=== PATIENT | male | born 1940 | race Caucasian/White ===

== ENCOUNTER 2023-05-07 18:42 | Inpatient (IN) | payer OTHER ==
[~2023-05-07] VITALS: Ht 180.3 cm; Wt 64.0 kg
[2023-05-07 19:25] VITALS: BP_SYST 99; PULSE 77; RESP 18; TEMP 97.5; O2SAT 95
[2023-05-07 20:52] LABS: BASOPHILS % (AUTO) 0.1 % (0.0-2.0); HEMATOCRIT 43.5 % (36-54); HEMOGLOBIN 14.5 g/dL (14.0-18.0); LYMPHOCYTES # (AUTO) 0.5 K/uL (1.0-5.5); LYMPHOCYTES % (AUTO) 6.4 % (20.5-51.5); MEAN CORPUSCULAR HEMOGLOBIN 29 pg (27-31); MEAN CORPUSCULAR HGB CONC 33 % (32-36); MEAN CORPUSCULAR VOLUME 86 fL (79.0-98.0); MONOCYTES # (AUTO) 0.8 K/uL (0.0-1.0); MONOCYTES % (AUTO) 9.8 % (1.7-9.3); NEUTROPHILS % (AUTO) 83.7 % (40.0-70.0); PLATELET COUNT (AUTO) 145 K/uL (130-430); RED BLOOD CELL COUNT(AUTO) 5.03 MIL/uL (4.2-6.2); RED CELL DISTRIBUTION WIDTH 14.4 % (9.0-15.0); WHITE BLOOD COUNT (AUTO) 8.4 K/uL (4.8-10.8)
[2023-05-07 21:08] LABS: ANION GAP 7 (5-15); CALCIUM 8.4 mg/dL (8.4-11.0); CARBON DIOXIDE 29 mmol/L (23-29); CHLORIDE 100 mmol/L (98-107); CREATININE 1.04 mg/dL (0.55-1.30); GLUCOSE 116 mg/dL (74-106); POTASSIUM 3.7 mmol/L (3.5-5.1); SODIUM SERUM 136 mmol/L (136-145); UREA NITROGEN, BLOOD 23 mg/dL (8-21)
[2023-05-07] MEDS ORDERED: ASPIRIN 81 MG TAB.CHEW PO ONE (21:45)
[2023-05-07] MEDS ORDERED: NITROGLYCERIN 1 INCH (GM) OINT. TP ONE (21:45)
[2023-05-07 22:01] LABS: BILIRUBIN,URINE 1+ (NEGATIVE); BLOOD, URINE 2+ (NEGATIVE); CLARITY/URINE SL CLOUDY (CLEAR); COLOR,URINE YELLOW (YELLOW); GLUCOSE,URINE NEGATIVE (NEGATIVE); KETONES,URINE TRACE (NEGATIVE); LEUKOCYTE ESTERASE ,URINE NEGATIVE (NEGATIVE); NITRITE, URINE NEGATIVE (NEGATIVE); PH,URINE 5.5 (5.0-8.0); PROTEIN URINE 2+ (NEGATIVE)
[2023-05-07 22:14] LABS: BACTERIA,URINE RARE /HPF (None Seen); MUCUS,URINE None Seen /LPF (None Seen); WBC,URINE 0-3 /HPF (0-3)
[2023-05-07] MEDS ORDERED: ATOR10TA68 PO (22:15)
[2023-05-07] MEDS ORDERED: DONE5TAB33 PO (22:15)
[2023-05-08 00:45] VITALS: BP_SYST 122; PULSE 63; RESP 18; TEMP 97.2
[2023-05-08 08:00] VITALS: BP_SYST 126; PULSE 64; RESP 20; TEMP 98.1; O2SAT 96
[2023-05-08] MEDS ORDERED: NALOXONE HCL 0.4 MG/ML AMP (NARCAN) IVP PRN ×2 (09:45)
[2023-05-08] MEDS ORDERED: HYDROcodone/ACETAMIN 5-325 MG TAB (NORCO/ VICODIN) PO PRN (09:45)
[2023-05-08] MEDS ORDERED: LORazepam 2 MG/ML VIAL IVP PRN (09:45)
[2023-05-08] MEDS ORDERED: ONDANSETRON HCL 4 MG/2 ML VIAL IVP PRN (09:45)
[2023-05-08] MEDS ORDERED: HYDROcodone/ACETAMIN 10-325 MG TAB PO PRN (09:45)
[2023-05-08] MEDS ORDERED: ACETAMINOPHEN 325 MG TABLET PO PRN (10:15)
[2023-05-08 11:59] VITALS: BP_SYST 109; PULSE 70; RESP 16; TEMP 97; O2SAT 95
[2023-05-08] MEDS: cefTRIAXone 1 GM IVPB PREMIX 50 ML IV SCH (13:30)
[2023-05-08] MEDS: NORMAL SALINE 5 ML DISP.SYRIN IVF SCH ×2 (13:59→20:48)
[2023-05-08 18:38] VITALS: BP_SYST 102; PULSE 64; RESP 14; TEMP 97.2; O2SAT 95
[2023-05-08 19:42] VITALS: BP_SYST 112; PULSE 94; RESP 18; TEMP 97.2; O2SAT 94
[2023-05-08] MEDS: DONEPEZIL HCL 5 MG TABLET (ARICEPT) PO SCH (20:48)
[2023-05-08] MEDS ORDERED: ATORVASTATIN 10 MG TABLET PO SCH (21:00)
[2023-05-09 00:52] VITALS: BP_SYST 119; PULSE 62; RESP 17; TEMP 97.5; O2SAT 96
[2023-05-09] MEDS: NORMAL SALINE 5 ML DISP.SYRIN IVF SCH ×3 (05:02→20:56)
[2023-05-09 07:43] LABS: BASOPHILS % (AUTO) 0.2 % (0.0-2.0); HEMATOCRIT 42.5 % (36-54); HEMOGLOBIN 14.1 g/dL (14.0-18.0); LYMPHOCYTES # (AUTO) 0.5 K/uL (1.0-5.5); LYMPHOCYTES % (AUTO) 8.6 % (20.5-51.5); MEAN CORPUSCULAR HEMOGLOBIN 28 pg (27-31); MEAN CORPUSCULAR HGB CONC 33 % (32-36); MEAN CORPUSCULAR VOLUME 86 fL (79.0-98.0); MONOCYTES # (AUTO) 0.4 K/uL (0.0-1.0); MONOCYTES % (AUTO) 6.6 % (1.7-9.3); NEUTROPHILS # (AUTO) 4.9 K/uL (1.8-7.7); NEUTROPHILS % (AUTO) 84.6 % (40.0-70.0); PLATELET COUNT (AUTO) 145 K/uL (130-430); RED BLOOD CELL COUNT(AUTO) 4.95 MIL/uL (4.2-6.2); RED CELL DISTRIBUTION WIDTH 14.5 % (9.0-15.0); WHITE BLOOD COUNT (AUTO) 5.8 K/uL (4.8-10.8)
[2023-05-09 07:44] VITALS: BP_SYST 118; PULSE 74; RESP 18; TEMP 98.5; O2SAT 92
[2023-05-09 07:55] LABS: ANION GAP 9 (5-15); CALCIUM 8.2 mg/dL (8.4-11.0); CARBON DIOXIDE 24 mmol/L (23-29); CHLORIDE 102 mmol/L (98-107); CREATININE 0.84 mg/dL (0.55-1.30); GLUCOSE 101 mg/dL (74-106); POTASSIUM 3.2 mmol/L (3.5-5.1); SODIUM SERUM 135 mmol/L (136-145); UREA NITROGEN, BLOOD 22 mg/dL (8-21)
[2023-05-09 12:15] VITALS: BP_SYST 104; PULSE 72; RESP 18; TEMP 98; O2SAT 94
[2023-05-09] MEDS: cefTRIAXone 1 GM IVPB PREMIX 50 ML IV SCH (13:27)
[2023-05-09 16:33] VITALS: BP_SYST 132; PULSE 72; RESP 24; TEMP 97.5; O2SAT 95
[2023-05-09 19:30] VITALS: BP_SYST 128; PULSE 86; RESP 18; TEMP 96.9; O2SAT 96
[2023-05-09] MEDS: ATORVASTATIN 10 MG TABLET PO SCH (20:55)
[2023-05-09] MEDS: DONEPEZIL HCL 5 MG TABLET (ARICEPT) PO SCH (20:55)
[2023-05-09] MEDS ORDERED: traZODone HCL 50 MG TABLET (DESYREL) PO SCH (21:00)
[2023-05-10 00:34] VITALS: BP_SYST 133; PULSE 80; RESP 16; TEMP 97.9; O2SAT 95
[2023-05-10] MEDS: NORMAL SALINE 5 ML DISP.SYRIN IVF SCH ×3 (05:48→21:11)
[2023-05-10 07:35] LABS: BASOPHILS % (AUTO) 0.1 % (0.0-2.0); HEMATOCRIT 45.6 % (36-54); HEMOGLOBIN 15.3 g/dL (14.0-18.0); LYMPHOCYTES # (AUTO) 0.4 K/uL (1.0-5.5); LYMPHOCYTES % (AUTO) 9.4 % (20.5-51.5); MEAN CORPUSCULAR HEMOGLOBIN 29 pg (27-31); MEAN CORPUSCULAR HGB CONC 33 % (32-36); MEAN CORPUSCULAR VOLUME 86 fL (79.0-98.0); MONOCYTES # (AUTO) 0.4 K/uL (0.0-1.0); MONOCYTES % (AUTO) 10.9 % (1.7-9.3); NEUTROPHILS # (AUTO) 3.2 K/uL (1.8-7.7); NEUTROPHILS % (AUTO) 79.6 % (40.0-70.0); PLATELET COUNT (AUTO) 134 K/uL (130-430); RED BLOOD CELL COUNT(AUTO) 5.28 MIL/uL (4.2-6.2)
[2023-05-10 07:44] LABS: ERYTHROCYTE SEDIMENTATION RATE 35 MM/HR (0-15)
[2023-05-10 08:00] VITALS: BP_SYST 106; PULSE 69; RESP 15; TEMP 97.3; O2SAT 93
[2023-05-10 08:02] LABS: ALANINE AMINOTRANSFERASE 19 U/L (12-78); ANION GAP 8 (5-15); ASPARTATE AMINOTRANSFERASE 42 U/L (10-37); CALCIUM 8.3 mg/dL (8.4-11.0); CARBON DIOXIDE 26 mmol/L (23-29); CHLORIDE 100 mmol/L (98-107); CREATININE 0.85 mg/dL (0.55-1.30); GLUCOSE 103 mg/dL (74-106); POTASSIUM 3.1 mmol/L (3.5-5.1); SODIUM SERUM 134 mmol/L (136-145); TOTAL BILIRUBIN 0.4 mg/dL (0.0-1.0); TOTAL PROTEIN, SERUM 7.2 g/dL (6.4-8.3); UREA NITROGEN, BLOOD 22 mg/dL (8-21)
[2023-05-10 10:29] VITALS: O2SAT 94
[2023-05-10 12:00] VITALS: BP_SYST 134; PULSE 73; RESP 15; TEMP 97.3; O2SAT 95
[2023-05-10] MEDS ORDERED: POTASSIUM CHLORIDE 20 MEQ TAB.PRT.SR PO ONE (13:30)
[2023-05-10] MEDS: cefTRIAXone 1 GM IVPB PREMIX 50 ML IV SCH (13:37)
[2023-05-10 16:00] VITALS: BP_SYST 124; PULSE 72; RESP 14; TEMP 97; O2SAT 94
[2023-05-10 20:00] VITALS: BP_SYST 117; PULSE 66; RESP 15; TEMP 97.6; O2SAT 96; O2SAT 97
[2023-05-10] MEDS ORDERED: traZODone HCL 50 MG TABLET (DESYREL) PO PRN (21:00)
[2023-05-10] MEDS ORDERED: traZODone HCL 50 MG TABLET (DESYREL) PO SCH (21:00)
[2023-05-10] MEDS: DONEPEZIL HCL 5 MG TABLET (ARICEPT) PO SCH (21:10)
[2023-05-10] MEDS: ATORVASTATIN 10 MG TABLET PO SCH (21:11)
[2023-05-11] VITALS: BP_SYST 128; PULSE 68; RESP 18; TEMP 97.3; O2SAT 98
[2023-05-11 05:38] LABS: BASOPHILS % (AUTO) 0.1 % (0.0-2.0); HEMATOCRIT 43.8 % (36-54); LYMPHOCYTES # (AUTO) 0.4 K/uL (1.0-5.5); LYMPHOCYTES % (AUTO) 5.8 % (20.5-51.5); MEAN CORPUSCULAR HEMOGLOBIN 29 pg (27-31); MEAN CORPUSCULAR HGB CONC 34 % (32-36); MEAN CORPUSCULAR VOLUME 85 fL (79.0-98.0); MONOCYTES # (AUTO) 0.5 K/uL (0.0-1.0); MONOCYTES % (AUTO) 7.9 % (1.7-9.3); NEUTROPHILS # (AUTO) 5.4 K/uL (1.8-7.7); NEUTROPHILS % (AUTO) 86.2 % (40.0-70.0); PLATELET COUNT (AUTO) 138 K/uL (130-430); RED BLOOD CELL COUNT(AUTO) 5.15 MIL/uL (4.2-6.2); RED CELL DISTRIBUTION WIDTH 14.4 % (9.0-15.0); WHITE BLOOD COUNT (AUTO) 6.2 K/uL (4.8-10.8)
[2023-05-11 05:46] LABS: ALANINE AMINOTRANSFERASE 19 U/L (12-78); ALBUMIN 2.6 g/dL (3.4-4.8); ANION GAP 9 (5-15); ASPARTATE AMINOTRANSFERASE 34 U/L (10-37); CALCIUM 7.9 mg/dL (8.4-11.0); CARBON DIOXIDE 26 mmol/L (23-29); CHLORIDE 101 mmol/L (98-107); GLUCOSE 120 mg/dL (74-106); PHOSPHORUS 2.6 mg/dL (2.7-4.5); POTASSIUM 3.5 mmol/L (3.5-5.1); SODIUM SERUM 136 mmol/L (136-145); TOTAL BILIRUBIN 0.4 mg/dL (0.0-1.0); TOTAL PROTEIN, SERUM 6.7 g/dL (6.4-8.3); UREA NITROGEN, BLOOD 20 mg/dL (8-21)
[2023-05-11] MEDS: NORMAL SALINE 5 ML DISP.SYRIN IVF SCH ×3 (05:52→23:11)
[2023-05-11 06:00] LABS: ERYTHROCYTE SEDIMENTATION RATE 36 MM/HR (0-15)
[2023-05-11 08:00] VITALS: O2SAT 95
[2023-05-11] MEDS: ACETAMINOPHEN 325 MG TABLET PO PRN ×3 (10:11→11:55)
[2023-05-11 12:31] VITALS: BP_SYST 121; PULSE 78; RESP 16; TEMP 98.4; O2SAT 93
[2023-05-11] MEDS: cefTRIAXone 1 GM IVPB PREMIX 50 ML IV SCH (12:34)
[2023-05-11] MEDS ORDERED: IPRATROPIUM/ALBUTEROL SULFATE 3 ML AMPUL.NEB (DUONEB) INH PRN (12:45)
[2023-05-11 13:05] VITALS: PULSE 79; O2SAT 89
[2023-05-11 13:13] LABS: ABG O2 SAT% ESTIMATE 92.7 % (94.0-100.0); BLOOD GAS BASE EXCESS 0.4 mmol/L (-3.0-3.0); BLOOD GAS HCO3 22.3 mmol/L (21.0-27.0); BLOOD GAS PCO2 29.1 mmHg (32.0-45.0)
[2023-05-11 13:14] LABS: BLOOD GAS PH 7.502 (7.350-7.450); BLOOD GAS PO2 57.8 mmHg (75.0-100.0)
[2023-05-11 13:15] LABS: ALLEN'S TEST POSITIVE (P)
[2023-05-11 16:24] VITALS: BP_SYST 124; PULSE 73; RESP 16; TEMP 98; O2SAT 93
[2023-05-11 20:00] VITALS: BP_SYST 111; PULSE 85; RESP 18; TEMP 98.1; O2SAT 95; O2SAT 98
[2023-05-11] MEDS: DONEPEZIL HCL 5 MG TABLET (ARICEPT) PO SCH (20:22)
[2023-05-11] MEDS: ATORVASTATIN 10 MG TABLET PO SCH (20:22)
[2023-05-11] MEDS: PIPERACILLIN/TAZO 3.375/DEX-IS 50 ML IV SCH (23:12)
[2023-05-12] VITALS (8 sets, daily range): BP systolic 102–127; PULSE 72–88; RESP 16–19; TEMP 97.5–99.4; O2SAT 91–95
[2023-05-12 05:52] LABS: BASOPHILS % (AUTO) 0.2 % (0.0-2.0); HEMATOCRIT 45.6 % (36-54); HEMOGLOBIN 15.2 g/dL (14.0-18.0); LYMPHOCYTES # (AUTO) 0.5 K/uL (1.0-5.5); LYMPHOCYTES % (AUTO) 6.3 % (20.5-51.5); MEAN CORPUSCULAR HEMOGLOBIN 29 pg (27-31); MEAN CORPUSCULAR HGB CONC 33 % (32-36); MEAN CORPUSCULAR VOLUME 86 fL (79.0-98.0); MONOCYTES # (AUTO) 0.5 K/uL (0.0-1.0); NEUTROPHILS # (AUTO) 6.4 K/uL (1.8-7.7); NEUTROPHILS % (AUTO) 86.5 % (40.0-70.0); PLATELET COUNT (AUTO) 142 K/uL (130-430); RED BLOOD CELL COUNT(AUTO) 5.33 MIL/uL (4.2-6.2); RED CELL DISTRIBUTION WIDTH 14.2 % (9.0-15.0); WHITE BLOOD COUNT (AUTO) 7.4 K/uL (4.8-10.8)
[2023-05-12 06:02] LABS: ANION GAP 9 (5-15); CALCIUM 8.1 mg/dL (8.4-11.0); CARBON DIOXIDE 28 mmol/L (23-29); CHLORIDE 100 mmol/L (98-107); CREATININE 0.83 mg/dL (0.55-1.30); GLUCOSE 120 mg/dL (74-106); POTASSIUM 3.6 mmol/L (3.5-5.1); SODIUM SERUM 137 mmol/L (136-145); UREA NITROGEN, BLOOD 20 mg/dL (8-21)
[2023-05-12] MEDS: NORMAL SALINE 5 ML DISP.SYRIN IVF SCH ×2 (06:03→22:11)
[2023-05-12] MEDS: PIPERACILLIN/TAZO 3.375/DEX-IS 50 ML IV SCH ×3 (06:03→22:10)
[2023-05-12] MEDS: IPRATROPIUM/ALBUTEROL SULFATE 3 ML AMPUL.NEB (DUONEB) INH SCH ×3 (15:27→23:03)
[2023-05-12] MEDS: DONEPEZIL HCL 5 MG TABLET (ARICEPT) PO SCH (22:17)
[2023-05-12] MEDS: ATORVASTATIN 10 MG TABLET PO SCH (22:17)
[2023-05-13] VITALS (10 sets, daily range): BP systolic 95–106; PULSE 72–80; RESP 16–20; TEMP 96.7–97.6; O2SAT 94–97
[2023-05-13] MEDS: IPRATROPIUM/ALBUTEROL SULFATE 3 ML AMPUL.NEB (DUONEB) INH SCH ×4 (02:18→15:30)
[2023-05-13] MEDS: NORMAL SALINE 5 ML DISP.SYRIN IVF SCH ×2 (06:16→14:00)
[2023-05-13] MEDS: PIPERACILLIN/TAZO 3.375/DEX-IS 50 ML IV SCH ×2 (06:16→12:48)
[2023-05-13 06:20] LABS: ANION GAP 9 (5-15); CALCIUM 7.9 mg/dL (8.4-11.0); CARBON DIOXIDE 29 mmol/L (23-29); CHLORIDE 102 mmol/L (98-107); GLUCOSE 144 mg/dL (74-106); SODIUM SERUM 140 mmol/L (136-145); UREA NITROGEN, BLOOD 28 mg/dL (8-21)
[2023-05-13] MEDS ORDERED: POTASSIUM CHLORIDE 20 MEQ/PKT PACKET PO ONE ×2 (10:45→14:45)
[2023-05-13] MEDS ORDERED: PIPE3.379 IV (11:05)
[2023-05-13] MEDS ORDERED: BISACODYL 10 MG/SUPPOSITORY RC ONE (16:45)
== END 2023-05-13 19:40 | DRG 177 ==
LOC: SED 18:42 → STU 22:27
PROVIDERS: ADMIT Specialist; ATTEND Specialist
DX: J69.0 Pneumonitis due to inhalation of food and vomit (principal); G93.41 Metabolic encephalopathy; J96.90 Respiratory failure, unspecified, unspecified whether with hypoxia or hypercapnia; E87.1 Hypo-osmolality and hyponatremia; R65.10 Systemic inflammatory response syndrome (SIRS) of non-infectious origin without acute organ dysfunction; N30.90 Cystitis, unspecified without hematuria; E87.6 Hypokalemia; G30.9 Alzheimer's disease, unspecified; F02.80 Dementia in other diseases classified elsewhere, unspecified severity, without behavioral disturbance, psychotic disturbance, mood disturbance, and anxiety; E83.51 Hypocalcemia; R13.10 Dysphagia, unspecified; R74.01 Elevation of levels of liver transaminase levels; R55 Syncope and collapse; R79.89 Other specified abnormal findings of blood chemistry; E11.65 Type 2 diabetes mellitus with hyperglycemia; E88.09 Other disorders of plasma-protein metabolism, not elsewhere classified; E78.00 Pure hypercholesterolemia, unspecified; Z79.899 Other long term (current) drug therapy
CPT/HCPCS: 36415; 36600; 70450-TC; 70551; 71045; 76376; 80048; 80053; 81000; 82803; 82962; 83735; 83880; 84100; 84484; 85025; 85651-TC; 87040; 87086; 92610-GN; 93005; 93306; 94640; 94760; 95816; 97110-GP; 97116-GP; 97530-GP; 99285; G0378; J0696; J2543; J7050; J7060